=== PATIENT | male | born 1955 | race Caucasian/White ===

== ENCOUNTER → 2016-08-24 | Outpatient (CLI) | payer OTHER ==
--- NOTE | 2016-08-24 13:15 | KCIC ---
Thyroid ultrasound Indication: Reason For Study Reason: PALPABLE NODULE IN NECK / Spl. Instructions: / History: Technique: Multiple real-time grayscale sonographic images obtained over the thyroid. Findings: The right lobe of the thyroid measures 4.4 x 1.5 x 2.1 centimeters. The isthmus measures 4 millimeters. The left lobe measures 4.7 x 1.5 x 1.9 centimeters. No thyroid nodules are identified but there is a 1.4 x 0.9 x 1.4 hypoechoic solid mass just inferior to the thyroid at midline. Impression: There is a 1.4 x 0.9 x 1.4 centimeter hypoechoic solid mass at midline just below the thyroid. Differential considerations include parathyroid adenoma, or pathologic lymph node. Consider ultrasound-guided biopsy versus follow-up. Electronically signed by: Khanh Navarrete (August 24, 2016 13:14:56)
== END | disposition home or self-care (01) ==
LOC: KCIC US 11:05
PROVIDERS: ATTEND Family Medicine
DX: R22.1 Localized swelling, mass and lump, neck (principal)
CPT/HCPCS: 76536

== ENCOUNTER → 2016-10-06 | Outpatient (CLI) | payer OTHER ==
[~2016-10-06] VITALS: Ht 182.9 cm; Wt 96.2 kg
[~2016-10-06] MED LIST: Cozaar PO; GLIM4TAB PO; Januvia PO; LIDOCAINE 1% / SOD BICARB 8.4% 20 ML VIAL. IJ ONE; METF500T4 PO; MIDAZOLAM HCL/PF 2 MG/2 ML VIAL. ONE; fentaNYL PF VIAL 100 MCG/2 ML VIAL ONE
[2016-10-06 07:41] LABS: BASO # 0.1 x10^3/uL (0.0-0.2); BASO % 1 % (0-3); EOS % 4 % (0-3); HEMATOCRIT 43.5 % (39.0-53.0); HEMOGLOBIN 14.8 g/dL (13.0-17.5); LYMPH # 1.5 x10^3/uL (1.0-4.8); LYMPH % 22 % (24-48); MEAN CORPUSCULAR HEMOGLOBIN 29 pg (25-35); MEAN CORPUSCULAR HGB CONC 34 g/dL (31-37); MEAN CORPUSCULAR VOLUME 85 fL (79-100); MONO % 10 % (0-9); NEUT % 64 % (31-73); PLATELET COUNT 203 x10^3/uL (140-400); RED BLOOD COUNT 5.15 x10^6/uL (4.30-5.70); RED CELL DISTRIBUTION WIDTH 12.8 % (11.5-14.5); WHITE BLOOD COUNT 6.9 x10^3/uL (4.0-11.0)
[2016-10-06 07:59] VITALS: BP 155/88
[2016-10-06 07:59] LABS: PROTHROMBIN TIME PATIENT 12.1 SEC (11.7-14.0)
--- NOTE | 2016-10-06 10:01 | PDOC ---
Provider Note Provider Note IR Note: Mr Valladares was scheduled today in IR for image guided bx of a palpable firm low anterior neck "mass", projecting just above sternal notch. By imaging, including U/S and CT, the palpable mass appears to represent sternal head of right SCM muscle, which is larger than contralateral left, possibly due to right handedness. After discussion with Kalyan, the bx procedure was deferred. He was discharged home to f/u with Dr Friedman. SAMMIE POON MD Oct 06, 2016 10:01
--- NOTE | 2016-10-07 10:59 | RAD ---
Limited noncontrast CT neck Indication: Palpable firm low anterior neck nodule, centered just above the sternal notch, right of midline. Image guided biopsy of this nodule was requested by primary care physician. Informed consent was obtained from the patient for image guided biopsy of low anterior neck mass. He was placed supine on the CT scanner. Preliminary ultrasound examination revealed no discrete mass in the area of the palpable anterior neck nodule. Noncontrast CT images were then obtained through the low neck. Those images revealed only asymmetrical prominence of sternal head of right sternocleidomastoid muscle, when compared to contralateral left, which may well relate to this patient's right-handedness. No discrete neck mass suitable for biopsy was identified. Impression: No ultrasound or noncontrast CT demonstration of discrete soft tissue mass suitable for biopsy in the area of the patient's palpable low anterior neck nodule. Relative enlargement of the sternal head of right sternocleidomastoid muscle, relative to contralateral left was noted. The requested biopsy procedure was deferred. PQRS Compliance Statement: One or more of the following individualized dose reduction techniques was/were utilized for this CT examination or procedure: 1. Automated exposure control. 2. Adjustment of mA and/or kV according to patient size. 3. Iterative reconstruction technique.
== END | disposition home or self-care (01) ==
LOC: INTRAD 07:02
PROVIDERS: ATTEND Family Medicine
DX: R22.1 Localized swelling, mass and lump, neck (principal); I10 Essential (primary) hypertension; E11.9 Type 2 diabetes mellitus without complications; Z79.01 Long term (current) use of anticoagulants; Z86.69 Personal history of other diseases of the nervous system and sense organs; Z86.73 Personal history of transient ischemic attack (TIA), and cerebral infarction without residual deficits
CPT/HCPCS: 36415; 70490; 85027; 85610